=== PATIENT | female | born 2005 | race Caucasian/White ===

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

== ENCOUNTER 2025-04-18 13:35 | Inpatient (IN) | payer SELFPAY ==
[~2025-04-18] VITALS: Ht 162.6 cm; Wt 67.6 kg
[~2025-04-18 13:35] MED LIST: NO HOME MEDS
[2025-04-18 14:09] LABS: LEUKOCYTE ESTERASE ,URINE MODERATE (Neg); NITRITES, URINE NEGATIVE (Neg); OCCULT BLOOD,URINE LARGE (Neg); URINE HCG NEGATIVE (NEG)
[2025-04-18 14:10] LABS: UA COLLECTION TYPE CLN CATCH MIDSTREAM
[2025-04-18 14:11] LABS: MEAN PLATELET VOLUME 8.2 FL (7.4-10.4); RED CELL DISTRIBUTION WIDTH 13.0 % (11.5-14.5)
--- NOTE | 2025-04-18 14:16 | Physician Documentation ---
History of Present Illness ~ General Chief Complaint: Mental Health Eval Stated Complaint: 5150 Time Seen by MD: 13:59 Source: patient (15), old records Mode of Arrival: Police History of Present Illness Initial Comments Patient comes in on a 5150 involuntary psychiatric hold, brought in by police after being found on an overpass threatening to jump off. Patient has a long history of depression and suicidal ideation, was seen here in 2022 for an aspirin overdose. At this time she reports she has taken no medications, but was cutting on her left volar forearm within the last couple of hours. Her last tetanus shot was also in the last five years. Patient is not under anyone's care for her mental health at this time, having just gotten insurance. Medication Reconciliation Allergies: Coded Allergies: No Allergy Information Available (Unverified , 07/24/22) Miscellaneous Medications Home Med List (No Home Medications), (Reported) Past Medical History Past Medical History: No Pertinent History, Depression Past Surgical History: no surgical history Smoking Status: Never smoker Alcohol Use: Rarely Drug Use: marijuana (Edibles, for sleep) Lives with: Family Lives In: Home Occupation: student Review of Systems All Other Systems at this time: Reviewed and Negative Physical Exam Physical Exam Vital Signs: Temperature: 99.4, Source: Temporal, Heart Rate: 102, Respiratory Rate: 16, BP: 133/93, Pulse Oximetry: 99, Weight: 68.640 Oxygen Flow Rate: 0 Physical Exam General: Pt is awake, alert, oriented x4 in no acute distress and well appearing. Head: Normocephalic and atraumatic. Eyes: Conjunctiva normal. ENT: Mucous membranes moist. Neck: Supple. Chest: Clear to auscultation bilaterally, without rales, rhonchi, or wheezes. There is no accessory muscle use or retractions. Cardiac: Regular rate and rhythm without murmurs, gallops or rubs. Palpation of the chest wall is normal. Abd: Soft, nondistended, nontender, with normoactive bowel sounds. No guarding or rebound. Extremities: Within normal limits without cyanosis, clubbing, or edema. Skin: [place], warm and dry with no significant rash appreciated. She has multiple very superficial abrasions over the left volar forearm, none full-thickness or requiring sutures Neuro: Cranial nerves II-XII grossly intact. The gait is normal. Progress Results/Orders Results/Orders Orders - TIM MERAZ MD Med Rec (04/18/25 13:42) Close Observation Level (04/18/25 13:42) Covid19 Binax Poc Result Entry (04/18/25 13:42) Regular Diet (04/18/25 Dinner) Close Observation Level (04/18/25 14:16) Wound Care Orders (04/18/25 14:16) Completed Orders - TIM MERAZ MD Cbc/Diff (04/18/25 13:42) Hcg, Ur Ql (04/18/25 13:42) Drug Screen, Urine (04/18/25 13:42) Ethanol (04/18/25 13:42) TSH (04/18/25 13:42) BMP (04/18/25 13:42) Ua With Microscopic (04/18/25 13:51) Acetaminophen (04/18/25 14:16) Salicylate (04/18/25 14:16) Vital Signs 04/18/25 04/18/25 04/18/25 04/19/25 13:50 14:05 18:57 01:25 Temp 99.4 Pulse 102 Resp 16 16 14 16 B/P (MAP) 133/93 Pulse Ox 99 O2 Flow Rate 0 04/19/25 04/19/25 05:38 06:30 Temp 98.6 Pulse 90 Resp 16 16 B/P (MAP) 128/86 (100) Pulse Ox 99 Laboratory Tests Test 04/18/25 13:51 04/18/25 13:53 04/18/25 14:01 Urine Specimen Description Cln catch midstream Urine Color Yellow Urine Clarity Cloudy Urine pH 6.0 Urine Specific [place] 1.020 Urine Protein Negative Urine Glucose (UA) Negative Urine Ketones 40 H Urine Occult Blood Large H Urine Nitrite Negative Urine Bilirubin Small Urine Urobilinogen 0.2 Urine Leukocyte Esterase Moderate H Urine RBC 3-10 Urine WBC 20-30 H Urine Squamous Epithelial Cells Moderate Urine Transitional Epithelial Cells Few Urine Renal Cells Few Urine Bacteria 2+ Volume Urine Centrifuged 10 ml Urine HCG, Qualitative Negative Urine Comment Urine Opiates Screen Negative Urine Methadone Screen Negative Urine Fentanyl Screen Negative Urine Barbiturates Screen Negative Urine Phencyclidine Screen Negative Urine Amphetamines Screen Negative Urine Benzodiazepines Screen Negative Urine Cocaine Screen Negative Urine Cannabinoids Screen Positive H Drug Screen Comment SARS-CoV-2 Antigen (Rapid) Negative White Blood Count 6.6 Red Blood Count 4.86 Hemoglobin 14.9 Hematocrit 43.4 Mean Corpuscular Volume 89.3 Mean Corpuscular Hemoglobin 30.6 Mean Corpuscular Hemoglobin Concent 34.3 Red Cell Distribution Width 13.0 Platelet Count 241 Mean Platelet Volume 8.2 Neutrophils (%) (Auto) 77.4 H Lymphocytes (%) (Auto) 17.1 L Monocytes (%) (Auto) 4.4 Eosinophils (%) (Auto) 0.8 Basophils (%) (Auto) 0.3 Neutrophils # (Auto) 5.1 Lymphocytes # (Auto) 1.1 Monocytes # (Auto) 0.3 Eosinophils # (Auto) 0.1 Basophils # (Auto) 0.0 CBC Comment Sodium Level 141 Potassium Level 3.8 Chloride Level 106 Carbon Dioxide Level 24.8 Anion Gap 10 Blood Urea Nitrogen 10 Creatinine 0.66 Estimated GFR/1.73 m2 > 90 BUN/Creatinine Ratio 15.2 Glucose Level 89 Calcium Level 8.9 Albumin 4.4 Thyroid Stimulating Hormone (TSH) 1.73 Chemistry Comments Salicylates Level 0.0 L Acetaminophen Level < 2.0 L Ethyl Alcohol Level < 10 Re-Evaluation Re-Evaluation : Re-Evaluation Time: 15:31 Progress Patient medically cleared for psychiatric evaluation and treatment. Medical Decision Making Additional information obtaine: N/A Findings Differential Diagnosis Suicidal, on mental health hold, no acute medical issues Departure Disposition: 30 STILL A PATIENT Impression: Primary Impression: Depression Qualified Codes: F32.A - Depression, unspecified Additional Impression: Suicidal ideation Condition: Stable Referrals: NO PRIMARY CARE PROVIDER (PCP) Education Educated: Patient Educated regarding: diagnosis, treatment Signature Scribe Signature: Attestation: TIM MERAZ MD Apr 18, 2025 14:16
[2025-04-18 14:17] LABS: URINE AMPHETAMINE SCREEN NEGATIVE (Neg); URINE BARBITUATE SCREEN NEGATIVE (Neg); URINE BENZODIAZEPINES SCREEN NEGATIVE (Neg); URINE CANNABINOID SCREEN POSITIVE (Neg); URINE COCAINE SCREEN NEGATIVE (Neg); URINE METHADONE SCREEN NEGATIVE (Neg); URINE OPIATE SCREEN NEGATIVE (Neg); URINE PHENCYCLIDINE SCREEN NEGATIVE (Neg)
[2025-04-18 14:23] LABS: RENAL CELLS, URINE FEW /HPF; SQUAMOUS EPITHELIAL CELL,UR MODERATE /LPF (FEW)
[2025-04-18 14:36] LABS: CREATININE 0.66 MG/DL (0.40-0.90); TOTAL CARBON DIOXIDE 24.8 MMOL/L (24-32); eCRCL 118 ML/MIN; eGFR > 90 ML/MIN
[2025-04-18 14:37] LABS: ETHANOL < 10 MG/DL (<10)
[2025-04-19 16:48] VITALS: BP 128/87; PULSE 98; RESP 16; TEMP 98.4; O2SAT 98
[2025-04-19] MEDS ORDERED: magnesium hydroxide 30ml (MOM) UD suspension PO PRN (17:20)
[2025-04-19] MEDS ORDERED: loperamide 2mg capsule PO PRN (17:20)
[2025-04-19] MEDS ORDERED: mag hydrox/Alum hydrox/simeth 30ml oral suspension PO PRN (17:20)
[2025-04-19 20:00] VITALS: BP 124/85; PULSE 82; RESP 16; TEMP 97.9; O2SAT 97
[2025-04-20 07:22] VITALS: BP 114/78; PULSE 89; RESP 17; TEMP 98; O2SAT 97
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
--- NOTE | 2025-04-20 12:21 | HISTORY AND PHYSICAL-Residence ---
History & Physical Providers to CC Resident Creating Document: ELIZABETH SHEFFIELD, DENISE ~ History of Present Illness Reason for Admit\Complaint: 5150 History of Present Illness The patient is a 19-year-old female with no past medical history admitted into behavioral health unit on 5150 hold for danger to self. Patient was [place] to jump [place] and the police had to pull the patient off the edge. She has a history of depression and suicidal ideation - one attempt of suicide at the age of 16. The patient does not have any medical complaints. No history of medical conditions and does not take any medications at home. She denied shortness of breath, fever, chest pain, palpitations, abdominal pain, nausea, vomiting, diarrhea, constipation, burning micturition. Allergies: Coded Allergies: No Allergy Information Available (Unverified , 07/24/22) Home Medications Home Medications Active Reported No Home Medications (Home Med List) Each Past Medical History Past Medical History Depression History of suicidal ideation Past Surgical History Surgical History Comment Noncontributory Past Social History Alcohol Use: Rarely Drug Use: Marijuana (Edibles, for sleep) Lives with: Family Lives In: Home Occupation: student ROS All Other Systems: Reviewed and Negative ROS Constitutional: No fever, dizziness, weakness. no change in appetite/weight HEENT: No blurring of the vision, No sore throat, epistaxis, tinnitus Cardiovascular: No chest pain/discomfort, palpitations, syncope. No pedal edema Respiratory: No sob, cough,, hemoptysis Gastrointestinal: No abdominal pain, nausea, vomiting. No diarrhea, constipation, melena. Genitourinary: No frquency, urgency, incontinence, nocturia. No dysuria, hematuria Musculoskeletal: No arthralgia, myalgia Endocrine: No fatigue, polydipsia, polyuria. No heat or cold intolerance Neurologic: No headache, vertigo. No weakness, numbness or tingling of extremities Psychiatric: No hallucinations/delusions, no anhedonia, no active suicidal ideation Hematologic: No bleeding or bruises Exam Vitals: Vital Signs Date Time Temp Pulse Resp B/P (MAP) Pulse Ox O2 Delivery O2 Flow Rate FiO2 04/20/25 11:00 Room Air 04/20/25 07:22 98.0 89 17 114/78 (90) 97 04/19/25 13:28 0 General: General: Adult female, Awake and Alert, no acute distress. HEENT: Conjunctiva pink, Sclera clear, Mucus Membranes moist. Neck: Supple without masses and tenderness. Resp: Unlabored. Lungs clear to auscultation bilaterally. Heart: Regular Rate and rhythm, normal S1 and S2 without murmur, rub or gallop. Abdomen: Soft and non tender no organomegaly Extremities: No cyanosis,clubbing or edema. Skin: Warm and Dry. Diagnostic Data Last Recorded Lab Results: 04/18/25 1401 04/18/25 1401 Additional Plan A 19-year-old female with no past medical history admitted into the [facility] unit on 5150 hold. She does not have any medical conditions. Suicidal ideation, on 5150 Depression Management as per Psychiatry. Asymptomatic bacteriuria Urinalysis positive for leukocyte esterase and bacteria. Patient does not have any symptoms. We will defer antibiotics. The patient does not have any other medical conditions. Labs reviewed. Urine toxicology screen positive for cannabinoids. Disposition: Hospitalist service will continue monitoring the patient during the course of her hospital stay. Elizabeth Sheffield MD Internal Medicine Resident, PGY-2 The patient was seen, examined and discussed with the attending physician, Dr. Victor. Date of Service: Apr 20, 2025 Billing Provider: BRUCE VICTOR MD Common Visit Codes: [id number] INP/OBS CARE (LOW) ELIZABETH SHEFFIELD, RES Apr 20, 2025 12:21 BRUCE VICTOR MD Apr 20, 2025 18:43
[2025-04-20 20:00] VITALS: BP 115/88; PULSE 98; RESP 18; TEMP 97.9; O2SAT 97
[2025-04-21 07:00] VITALS: BP 105/75; PULSE 75; RESP 14; TEMP 97.6; O2SAT 99
[2025-04-21] MEDS: ESCITALOPRAM 10 mg tablet 10 MG TABLET PO SCH (07:42)
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
[2025-04-21 19:00] VITALS: RESP 16; O2SAT 98
[2025-04-21 20:00] VITALS: BP 135/92; PULSE 96; RESP 16; TEMP 98.7; O2SAT 98
[2025-04-21 21:18] VITALS: RESP 16; O2SAT 98
[2025-04-22 07:00] VITALS: RESP 16; O2SAT 99
[2025-04-22 08:00] VITALS: BP 127/82; PULSE 85; RESP 16; TEMP 97.7; O2SAT 99
[2025-04-22] MEDS ORDERED: HYDR-3686 PO (10:03)
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
== END 2025-04-22 10:55 | disposition home or self-care (01) | DRG 885 ==
LOC: EEVIPCON 13:36 → ER 13:36 → ADULT MH 04-19 12:55 → ED HOLD 04-19 12:55 → UNDOADMIN 04-19 12:55 → ADULT MH 04-19 16:48
PROVIDERS: ADMIT Psychiatry & Neurology Psychiatry; ATTEND Psychiatry & Neurology Psychiatry
PROC: GZHZZZZ Group Psychotherapy (ICD-10-PCS; principal; 2025-04-20)
DX: F33.2 Major depressive disorder, recurrent severe without psychotic features (principal); R45.851 Suicidal ideations; F41.1 Generalized anxiety disorder; Z20.822 Contact with and (suspected) exposure to COVID-19; F41.9 Anxiety disorder, unspecified; F43.10 Post-traumatic stress disorder, unspecified
CPT/HCPCS: 36415; 80048; 80305; 80320; 80329; 81001; 81025; 84443; 85025; 87081; 87811; 99285; A6250; A6258; A6446; Q0177